=== PATIENT | male | born 1955 | race Caucasian/White ===

== ENCOUNTER 2017-02-21 14:46 | Outpatient (RCR) | payer MEDICARE, OTHER ==
[2017-04-02] MEDS ORDERED: TAMS0.4C98 PO (15:31)
[2017-04-02] MEDS ORDERED: IPRA3AMP IH (15:31)
[2017-04-02] MEDS ORDERED: VARE1TAB22 PO (15:31)
[2017-04-02] MEDS ORDERED: IPRA4AER IH (15:31)
[2017-04-02] MEDS ORDERED: FLUT1AER IH (15:31)
[2017-04-20] MEDS ORDERED: HYDR-3874 PO (14:49)
[2017-04-20] MEDS ORDERED: CIPR-225 PO (14:49)
[2017-04-20] MEDS ORDERED: PHEN-640 PO (14:49)
== END 2017-04-24 | disposition home or self-care (01) ==
LOC: ONC 14:46
PROVIDERS: ATTEND Radiology Radiation Oncology
DX: C61 Malignant neoplasm of prostate (principal)
CPT/HCPCS: 76873; 99214

== ENCOUNTER 2017-04-02 15:16 | Outpatient (CLI) | payer MEDICARE ==
[~2017-04-02] VITALS: Ht 180.3 cm; Wt 61.3 kg
[2017-04-02] MEDS ORDERED: VARE1TAB22 PO (15:31)
[2017-04-02] MEDS ORDERED: TAMS0.4C98 PO (15:31)
[2017-04-02] MEDS ORDERED: IPRA4AER IH (15:31)
[2017-04-02] MEDS ORDERED: IPRA3AMP IH (15:31)
[2017-04-02] MEDS ORDERED: FLUT1AER IH (15:31)
[2017-04-02 15:38] VITALS: BP 152/82
--- NOTE | 2017-04-02 16:20 | Diagnostic Imaging Report ---
INDICATION: Evaluation prior to brachytherapy. Prostate carcinoma.. TECHNIQUE: Two-view chest at 4:19 p.m. CORRELATION STUDY: None. FINDINGS: Lung winter are mildly hyperinflated. Mild pectus excavatum deformity. Lungs appear to be generally clear. Heart size, mediastinum, and vasculature are within normal limits. A few scattered skin mikala are present. Mild degenerative changes of the thoracic spine. Displaced left posterior sixth rib is noted, could be posttraumatic or surgical in nature. Also some deformity of the sternum is suggested. IMPRESSION: 1. Hyperinflated lung winter. Negative for acute cardiopulmonary abnormality. Dictated by: Dictated on workstation # [id number]
== END 2017-04-02 16:00 ==
LOC: PREOP 15:16
PROVIDERS: ATTEND Urology
DX: Z01.810 Encounter for preprocedural cardiovascular examination (principal); Z01.811 Encounter for preprocedural respiratory examination; Z11.2 Encounter for screening for other bacterial diseases; C61 Malignant neoplasm of prostate
CPT/HCPCS: 71020; 87081; 93005

== ENCOUNTER 2017-04-20 10:03 | Day surgery (SDC) | payer MEDICARE ==
[~2017-04-20] VITALS: Ht 180.3 cm; Wt 61.3 kg
[~2017-04-20 10:03] MED LIST: FLUT1AER IH; IPRA3AMP IH; IPRA4AER IH; TAMS0.4C98 PO; VARE1TAB22 PO
--- OUTSIDE RECORDS SUMMARY | 2017-04-20 10:08 | XMS REPORT | Encounter Summary ---
Author Author [facility] Address Unknown Phone Unavailable Care Team Providers Care Windows Security Analyst Name Role Phone PCP Unavailable Reason for Visit * Reason Comments Prostate Cancer Encounter Details Date Type Department Care Team Description 02/06/2017 Office Visit [facility] Camilla Sotelo MD Prostate cancer (HCC) Physicians - Urology [address] (Primary Dx) [address] [place] [address] 2ND FLOOR POD A [phone] [place] [address] [phone] Social History Tobacco Use Types Packs/Day Years Used Date Current Every Day Smoker Cigarettes 0.5 45 Smokeless Tobacco: Former User Alcohol Use Drinks/Week oz/Week Comments Yes 0 Standard 0.0 drinks or equivalent Sex Assigned at Date Recorded Not on file as of this encounter Last Filed Vital Signs Vital Sign Reading Time Taken Blood Pressure 140/63 02/06/2017 1:32 PM CDT Pulse 62 02/06/2017 1:32 PM CDT Temperature - - Respiratory Rate - - Oxygen Saturation - - Inhaled Oxygen - - Concentration Weight 62.3 kg (137 lb 6.4 oz) 02/06/2017 1:32 PM CDT Height 180.3 cm (5' 11") 02/06/2017 1:32 PM CDT Body Mass Index 19.16 02/06/2017 1:32 PM CDT in this encounter Progress Notes * Camilla Sotelo MD - 02/06/2017 1:34 PM CDT Formatting of this note may be different from the original. Date of Service: 02/06/2017 2:11 PM Subjective: Gilberto Cheatham is a 61 y.o. male. History of Present Illness 61 year old with recent diagnosis of prostate cancer referred to Dr. Sotelo to discuss surgical options. He had a recent PSA Screen which returned normal at 3.56, but JHONATAN was positive for right sided nodularity. He underwent a TRUS Bx which demonstrated 4 cores positive for for prostatic adenocarcinoma, with Valerie 3+3=6 in 34 cores in the right base, mid-gland, and lateral base, and 1 core of [place] 3+5=8 in 1 core, right lateral mid-gland (80% of the tissue). He had a follow-up CT A/P and NM Bone scan which were negative for evidence of metastatic disease. He was referred to Radiation Oncology and was counseled on options, and he states he was offered brachytherapy. He presents today for surgical evaluation. Mr. Cheatham has a history of prior colorectal cancer s/p right partial colectomy with primary re-anastamosis, radiation, and chemotherapy in 1997. He had subsequent small bowel obstruction requiring exploratory laparotomy and re- anastamosis. He also has a history of Stage 1 left lung cancer s/p left lower lobectomy. Mr. Cheatham denies any LUTS, bone pain, sweats, or fevers at this time. JHONATAN today demonstrates right sided nodularity of the prostate. Mr. Cheatham has mild baseline ED, but does not take PDE-5 inhibitors. He also has COPD on inhalers, but does not use home O2. Review of Systems Constitutional: Negative for fever, chills, diaphoresis, activity change, fatigue and unexpected weight change. HENT: Negative for congestion, hearing loss, mouth sores, sore throat and trouble swallowing. Eyes: Negative for pain and visual disturbance. Respiratory: Negative for cough, chest tightness, shortness of breath and wheezing. Cardiovascular: Negative. Negative for chest pain, palpitations and leg swelling. Gastrointestinal: Negative for nausea, vomiting, abdominal pain, diarrhea, constipation, blood in stool and abdominal distention. Endocrine: Negative for polydipsia and polyuria. Genitourinary: Negative for dysuria, urgency, frequency, hematuria, flank pain, difficulty urinating and penile pain. Musculoskeletal: Negative for myalgias, back pain, joint swelling, arthralgias and neck pain. Skin: Negative for rash. Neurological: Negative for weakness, light-headedness, numbness and headaches. Past Medical History Diagnosis Date Arthritis Asthma Enlarged prostate Malignant neoplasm of colon (HCC) Prostate cancer (HCC) Colon polyps Erectile dysfunction History of radiation therapy Past Surgical History Procedure Laterality Date Hx cholecystectomy Skin graft Lung surgery Family History Problem Relation Age of Onset Family history unknown: Yes Current Outpatient Prescriptions Medication Sig Dispense Refill fluticasone-vilanterol (BREO ELLIPTA) 200-25 mcg/dose inhaler Inhale 1 Puff by mouth into the lungs daily. gabapentin (NEURONTIN) 300 mg capsule Take 300 mg by mouth every 8 hours. IPRATROPIUM/ALBUTEROL SULFATE (COMBIVENT IN) Inhale by mouth into the lungs. IPRATROPIUM/ALBUTEROL SULFATE (DUONEB IN) Inhale by mouth into the lungs. MULTIVITAMINS WITH FLUORIDE (MULTI-VITAMIN PO) Take by mouth. tamsulosin (FLOMAX) 0.4 mg capsule Take 0.4 mg by mouth daily. Do not crush , chew or open capsules. Take 30 minutes following the same meal each day. No current facility-administered medications for this visit. Allergies Allergen Reactions Penicillins RASH Reglan [Metoclopramide] RASH Social History Social History Marital Status: Spouse Name: N/A Number of Children: N/A Years of Education: N/A Occupational History Not on file. Social History Main Topics Smoking status: Current Every Day Smoker -- 0.50 packs/day for 45 years Types: Cigarettes Smokeless tobacco: Former User Alcohol Use: 0.0 oz/week 0 Standard drinks or equivalent per week Drug Use: No Sexual Activity: Partners: Female Other Topics Concern Not on file Social History Narrative No narrative on file Objective: Filed Vitals: 02/06/17 1332 BP: 140/63 Pulse: 62 Height: 180.3 cm (71") Weight: 62.324 kg (137 lb 6.4 oz) Body mass index is 19.17 kg/(m^2). Physical Exam Constitutional: He is oriented to person, place, and time. He appears well- developed and well-nourished. No distress. HENT: Head: Normocephalic and atraumatic. Eyes: Conjunctivae and EOM are normal. Neck: Normal range of motion. No tracheal deviation present. Cardiovascular: Normal rate, regular rhythm, normal heart sounds and intact distal pulses. Exam reveals no gallop and no friction rub. No murmur heard. Pulmonary/Chest: Effort normal. No respiratory distress. He exhibits no tenderness. Abdominal: Soft. He exhibits no distension. There is no tenderness. There is no rebound and no guarding. Genitourinary: No suprapubic tenderness. No CVA tenderness. Circumcised phallus with orthotopic meatus without lesions. Scrotal testicles palpable bilaterally. Symmetric without masses or swelling. Vas palpable bilaterally. No inguinal hernia bilaterally. JHONATAN: normal rectal tone, no masses , no gross blood. 25 gram prostate with right nodularity. Musculoskeletal: Normal range of motion. He exhibits no edema. Neurological: He is alert and oriented to person, place, and time. Skin: Skin is warm and dry. No rash noted. Psychiatric: He has a normal mood and affect. His behavior is normal. Judgment and thought content normal. I personally reviewed the patients imaging (CT A/P and NM Bone Scan) and outside records today in clinic. Pertinent details summarized in HPI and Assessment/Plan. Assessment and Plan: Problem Prostate Cancer (Hcc) 61 year old male with a recent history of PSA of 3.56 and abnormal JHONATAN who saw Dr. Mora and had a recent TRUS Bx which demonstrated 4 cores positive for for prostatic adenocarcinoma, with Valerie 3+3=6 in 34 cores in the right base, mid- gland, and lateral base, and 1 core of Valerie 3+5=8 in 1 core, right lateral mid-gland (80% of the tissue). He also had a recent bone scan and CT Abdomen Pelvis without evidence of metastatic disease. JHONATAN today with right sided nodularity. Prostate cancer (HCC) I had an extensive consultation with the patient today reviewing the spectrum of prostate cancer treatment options, including the pros and cons and risks and benefits of each. Surgery (RRP, RALP) Radiation (XRT, BrachyTx) Cryoablation High Intensity Focused Ultrasound (HIFU) Androgen Deprivation Tx (ADT) Active surveillance () Risks and complications of surgery, especially stress incontinence and erectile dysfunction reviewed in detail. Differences between robotic prostatectomy and radical retropubic prostatectomy reviewed. Typical benefit of robotic prostatectomy include less blood loss and shorter hospital stay, but otherwise results are similar in regards to oncologic outcome, stress incontinence and erectile dysfunction compared to retropubic prostatectomy. Risks and complications of radiation, reviewed. Possible benefits of , including avoidance of side effects, complications, & potentially over treatment reviewed in detail, compared to possibility progression of disease & missing a window of curability. recommendations & protocol reviewed. After careful consideration, the patient would like to proceed with Radiation therapy. He will follow-up with Dr. Cueto in [place], [place] for this therapy. Ginger Wilson MD PGY-2 Urology ATTESTATION I personally performed the hall portions of the E/M visit, discussed case with resident and concur with resident documentation of history, physical exam, assessment, and treatment plan unless otherwise noted. Staff name: Camilla Sotelo MD Date: 02/06/2017 in this encounter Plan of Treatment Not on fileas of this encounter Visit Diagnoses Diagnosis Prostate cancer (HCC) - Primary Malignant neoplasm of prostate in this encounter
--- OUTSIDE RECORDS SUMMARY | 2017-04-20 10:08 | XMS REPORT | Clinical Summary ---
Author Author [facility] Organization [facility] Address Unknown Phone Unavailable Care Team Providers Care Cardiology Nurse Practitioner Name Role Phone PCP Unavailable Source Comments Some departments are not documenting in the electronic medical record. If you do not see the information that you expected, contact Release of Information in the Health Information Management department at [phone] for further assistance in locating additional records.[facility] Allergies Active Allergy Reactions Severity Noted Date Comments Penicillins RASH Medium 02/06/2017 Metoclopramide RASH Medium 02/06/2017 Current Medications Prescription Sig. Disp. Refills Start End Date Status Date tamsulosin (FLOMAX) 0.4 Take 0.4 mg by mouth Active mg capsule daily. Do not crush, chew or open capsules. Take 30 minutes following the same meal each day. fluticasone-vilanterol Inhale 1 Puff by mouth Active (BREO ELLIPTA) 200-25 into the lungs daily. mcg/dose inhaler IPRATROPIUM/ALBUTEROL Inhale by mouth into the Active SULFATE (COMBIVENT IN) lungs. MULTIVITAMINS WITH Take by mouth. Active FLUORIDE (MULTI-VITAMIN PO) gabapentin (NEURONTIN) Take 300 mg by mouth Active 300 mg capsule every 8 hours. IPRATROPIUM/ALBUTEROL Inhale by mouth into the Active SULFATE (DUONEB IN) lungs. Active Problems Problem Noted Date Prostate cancer (HCC) 02/06/2017 Overview: 61 year old male with a recent [...] disease. JHONATAN today with right sided nodularity. L ast Assessment & Plan: I had an extensive consultation with the [...] He will follow-up with Dr. Cueto in [place], [place] for this therapy. Encounters Date Type Specialty Care Team Description 02/06/2017 Office Visit Urology Camilla Sotelo MD Prostate cancer (HCC) (Primary Dx) from Last 3 Months Social History Tobacco Use Types Packs/Day Years Used Date Current Every Day Smoker Cigarettes 0.5 45 Smokeless Tobacco: Former User Alcohol Use Drinks/Week oz/Week Comments Yes 0 Standard 0.0 drinks or equivalent Sex Assigned at Date Recorded Not on file Last Filed Vital Signs Vital Sign Reading [...] Mass Index 19.16 02/06/2017 1:32 PM CDT Plan of Treatment Health Maintenance Due Date Last Done Comments HEPATITIS C SCREENING 1954 PHYSICAL (COMPREHENSIVE) 1961 EXAM PERTUSSIS VACCINE 1965 TETANUS VACCINE 1971 COLORECTAL CANCER 2004 SCREENING SHINGLES VACCINE 2014 INFLUENZA VACCINE 05/04/2017 Results Not on filefrom Last 3 Months
[2017-04-20] MEDS ORDERED: LEVOFLOXACIN 500 MG/D5W 100 ML (PRE-MIX) IV ONE (10:15)
[2017-04-20] MEDS ORDERED: LACTATED RINGERS 1,000 ML IV PRN (10:23)
[2017-04-20 10:49] VITALS: BP 132/80
[2017-04-20] MEDS ORDERED: MIDAZOLAM 2 MG/2 ML (VERSED) VIAL ONE (10:52)
[2017-04-20] MEDS ORDERED: fentaNYL INJECTION 100 MCG/2 ML AMP ONE (10:52)
[2017-04-20] MEDS ORDERED: DEXAMETHASONE 10 MG/ML (DECADRON) 1 ML VIAL ONE (10:52)
[2017-04-20] MEDS ORDERED: ONDANSETRON 4 MG/2 ML (SDV) Z0FRAN ONE (10:52)
[2017-04-20] MEDS ORDERED: LACTATED RINGERS 1,000 ML IV ONE (10:52)
[2017-04-20] MEDS ORDERED: LIDOCAINE PF 2% 5 ML (XYLOCAINE) VIAL ONE (10:52)
[2017-04-20] MEDS ORDERED: proPOfol 200 MG/20 ML (DIPRIVAN) VIAL IV ONE (10:52)
[2017-04-20] MEDS ORDERED: SEVOFLURANE (ULTANE) 15 ML INHAL SOLN ONE (10:52)
--- NOTE | 2017-04-20 12:11 | Progress Note-Pre Operative ---
Pre-Operative Progress Note H&P Reviewed The H&P was reviewed, patient examined and no changes noted. Date Seen by Provider: Apr 20, 2017 Time Seen by Provider: 12:10 Date H&P Reviewed: Apr 20, 2017 Time H&P Reviewed: 12:11 Pre-Operative Diagnosis: CA PROSTATE ROBYN GUILLERMO MD Apr 20, 2017 12:11 pm
--- NOTE | 2017-04-20 12:12 | Progress Note-Post Operative ---
Post-Operative Progess Note Surgeon (s)/Machine Sprayer (s) Surgeon ROBYN GUILLERMO MD Machine Sprayer: SALLY Pre-Operative Diagnosis CA PROSTATE Post-Operative Diagnosis SAME Procedure & Operative Findings Date of Procedure 04/20/17 Procedure Performed/Findings BRACHYTHERAPY, CYSTOGRAM, POSSIBLE CYSTO AND REMOVAL OF SEEDS Anesthesia Type GENERAL Estimated Blood Loss Estimated blood loss (mL): N/A Specimens/Packing Specimens Removed N/A Packing: N/A ROBYN GUILLERMO MD Apr 20, 2017 12:12 pm
--- NOTE | 2017-04-20 12:14 | Discharge Inst-Urology ---
Discharge Inst-Urology Discharge Medications New, Converted, or Re-newed RX: RX on Chart Patient Instructions/Follow Up Plan Please make appointment to been seen in office in 2 weeks. Rest till then or daughter to [place] stallings Sunday 9am, please give them syringe Increase oral fluids for 48 hours and then as needed. Diet and Activity as tolerated. If questions or concerns contact your physician Or seek help at emergency department. ROBYN GUILLERMO MD Apr 20, 2017 12:14 pm
[2017-04-20] MEDS ORDERED: ONDANSETRON 4 MG/2 ML (SDV) Z0FRAN IVP PRN (13:45)
[2017-04-20] MEDS ORDERED: morphine INJ 10 MG/ML 1ML (SYR OR VIAL) IVP PRN (13:45)
[2017-04-20 14:25] VITALS: BP 124/78
[2017-04-20] MEDS ORDERED: CIPR-225 PO ×2 (14:49)
[2017-04-20] MEDS ORDERED: HYDR-3874 PO ×2 (14:49)
[2017-04-20] MEDS ORDERED: PHEN-640 PO ×2 (14:49)
[2017-04-20 14:55] VITALS: BP 126/79
[2017-04-20 15:25] VITALS: BP 128/71
[2017-04-20] MEDS ORDERED: PHENAZOPYRIDINE 100 MG (PYRIDIUM) TABLET ONE (16:18)
[2017-04-20 16:45] VITALS: BP 128/71
[2017-04-20] MEDS ORDERED: PHENAZOPYRIDINE 100 MG (PYRIDIUM) TABLET PO ONE (17:00)
--- NOTE | 2017-04-20 18:01 | Diagnostic Imaging Report ---
INDICATION: Prostate cancer. IMPRESSION: 29 seconds of fluoroscopy was used by Dr. Marcial during brachytherapy seed implantation into the prostate. Dictated by: Dictated on workstation # [id number]
== END 2017-04-20 16:45 | disposition home or self-care (01) ==
LOC: SDC 10:03
PROVIDERS: ATTEND Urology
DX: C61 Malignant neoplasm of prostate (principal); J44.9 Chronic obstructive pulmonary disease, unspecified; M19.91 Primary osteoarthritis, unspecified site; F17.210 Nicotine dependence, cigarettes, uncomplicated; Z85.038 Personal history of other malignant neoplasm of large intestine; Z85.118 Personal history of other malignant neoplasm of bronchus and lung; Z79.899 Other long term (current) drug therapy
CPT/HCPCS: 76965; 77318; 77332; 77336; 77470; 77778

== ENCOUNTER 2017-04-26 14:33 | Emergency (ER) | payer MEDICARE ==
[~2017-04-26 14:33] MED LIST changes: +CIPR-225 PO; +HYDR-3874 PO; +PHEN-640 PO
--- OUTSIDE RECORDS SUMMARY | 2017-04-26 14:43 | XMS REPORT | Clinical Summary ---
Author Author [facility] Organization [facility] Address Unknown Phone Unavailable Care Team Providers Care Barbecue Cook Name Role Phone PCP Unavailable Source Comments Some departments are not documenting in the electronic medical record. If you do not see the information that you expected, contact Release of Information in the Health Information Management department at [phone] for further assistance in locating additional records.[facility] Allergies Active Allergy Reactions Severity Noted [...] He will follow-up with Dr. Cueto in [place], [place] for this therapy. Encounters Date Type [...]
--- OUTSIDE RECORDS SUMMARY | 2017-04-26 14:43 | XMS REPORT | Encounter Summary ---
Author Author [facility] Organization [facility] Address Unknown Phone Unavailable Care Team Providers Care Maintenance Department Manager Name Role Phone PCP Unavailable Reason for Visit * Reason Comments Prostate Cancer Encounter Details Date Type Department Care Team Description 02/06/2017 Office Visit [facility] Camilla Sotelo MD Prostate cancer (HCC) Physicians - Urology [address] (Primary Dx) [address] [place] [address] 2ND FLOOR POD A [phone] [place] [address] [phone] Social History Tobacco Use Types Packs/Day Years [...] and lateral base, and 1 core of [place] 3+5=8 in 1 core, right lateral mid-gland [...] He will follow-up with Dr. Cueto in [place], [place] for this therapy. iGnger Wilson MD PGY-2 Urology ATTESTATION I personally [...]
[2017-04-26] MEDS ORDERED: CIPR500T4 (15:42)
[2017-04-26 15:54] LABS: BASOPHILS % (AUTO) 1 % (0-10); EOSINOPHILS # (AUTO) 0.2 10^3/uL (0.0-0.3); EOSINOPHILS % (AUTO) 3 % (0-10); LYMPHOCYTES # (AUTO) 1.2 X 10^3 (1.0-4.0); LYMPHOCYTES % (AUTO) 16 % (12-44); MEAN CORPUSCULAR HEMOGLOBIN 33 PG (25-34); MEAN CORPUSCULAR HGB CONC 33 G/DL (32-36); MEAN CORPUSCULAR VOLUME 97 FL (80-99); MEAN PLATELET VOLUME 9.4 FL (7.4-10.4); MONOCYTES # (AUTO) 0.6 X 10^3 (0.0-1.0); MONOCYTES % (AUTO) 8 % (0-12); NEUTROPHILS # (AUTO) 5.3 X 10^3 (1.8-7.8); NEUTROPHILS % (AUTO) 73 % (42-75); PLATELET COUNT 189 10^3/uL (130-400); RED BLOOD COUNT 4.22 10^6/uL (4.35-5.85); RED CELL DISTRIBUTION WIDTH 11.8 % (10.0-14.5); WHITE BLOOD COUNT 7.3 10^3/uL (4.3-11.0)
[2017-04-26 15:55] LABS: BILIRUBIN,URINE NEGATIVE (NEGATIVE); KETONES,URINE NEGATIVE (NEGATIVE); LEUKOCYTE ESTERASE ,URINE 1+ (NEGATIVE); NITRITE,URINE NEGATIVE (NEGATIVE); PH,URINE 7 (5-9); PROTEIN,URINE NEGATIVE (NEGATIVE); UROBILINOGEN,URINE NORMAL (NORMAL)
--- NOTE | 2017-04-26 15:57 | ED GU-Male ---
General Chief Complaint: -Male Stated Complaint: TROUBLE URINATING Source: patient Exam Limitations: no limitations History of Present Illness Time seen by provider: 15:56 Initial Comments To ER with troubles urinating. Patient had prostate seeding done by Dr. Guillermo a few weeks ago. This was followed with Veliz catheter placement. He is currently on Cipro. He states that he is able to urinate but feels as though he is not able to empty his bladder completely and has only a dribbling when he does go. His catheter was removed on Sunday of this week with today being . Until today, he's been able to urinate without difficulty. Timing/Duration: just prior to arrival Severity/Quality: moderate Location: suprapubic Radiation: none Activities at Onset: none Prior Genitourinary Problems: none Associated Symptoms: denies symptoms Allergies and Home Medications Allergies Coded Allergies: Penicillins (Verified Allergy, Intermediate, WELTS, 04/26/17) metoclopramide (Verified Allergy, Intermediate, RASH, 04/26/17) temazepam (Verified Allergy, Intermediate, RASH, 04/26/17) Home Medications Albuterol/Ipratropium 4 Gm Aero, IH PRN, (Reported) Ciprofloxacin HCl 500 Mg Tablet, 500 MG PO BID, #14 Prescribed by: GITA BROWN on 04/20/17 1449 Ciprofloxacin HCl 500 Mg Tablet, (Reported) Fluticasone/Vilanterol 1 Each Blst.w.dev, 1 EACH IH DAILY, (Reported) Hydrocodone/Acetaminophen 1 Each Tablet, 1-2 EACH PO Q4H PRN for PAIN, #30 Prescribed by: GITA BROWN on 04/20/17 1449 Ipratropium/Albuterol Sulfate 3 Ml Ampul.neb, 3 ML IH Q4H PRN for SHORTNESS OF BREATH, (Reported) Phenazopyridine HCl 200 Mg Tablet, 1 TAB PO TID PRN for SPASMS, #30 Prescribed by: GITA BROWN on 04/20/17 1449 Tamsulosin HCl 0.4 Mg Cap, 0.4 MG PO DAILY, (Reported) Varenicline Tartrate 1 Mg Tablet, 1 MG PO DAILY, (Reported) Constitutional: see HPI, No chills, No fever EENTM: see HPI Respiratory: no symptoms reported Cardiovascular: no symptoms reported Genitourinary: no symptoms reported Musculoskeletal: no symptoms reported Skin: no symptoms reported Psychiatric/Neurological: No Symptoms Reported Endocrine: No Symptoms Reported Hematologic/Lymphatic: No Symptoms Reported Past Uxqylfj-Pspzxq-Rfeoys Hx Patient Social History Alcohol Use: Denies Use Recreational Drug Use: No Smoking Status: Current Everyday Smoker Type Used: Cigarettes Recent Foreign Travel: No Contact w/Someone Who Travel: No Recent Hopitalizations: No Physical Abuse: No Sexual Abuse: No Mistreated: No Fear: No Immunizations Up To Date Tetanus Booster (TDap): Unknown Date of Pneumonia Vaccine: Apr 02, 2014 Seasonal Allergies Seasonal Allergies: No Surgeries History of Surgeries: Yes (LOBECTOMY LLL 2008, BOWEL RESECTION-FOR BOWEL STRANGULATION, COLECTOMY) Surgeries: Gallbladder Respiratory History of Respiratory Disorde: Yes Respiratory Disorders: COPD Cardiovascular History of Cardiac Disorders: Yes (POSS PE AFTER BOWEL RESECTION) Neurological History of Neurological Disord: No Reproductive System Hx Reproductive Disorders: No Sexually Transmitted Disease: No HIV/AIDS: No Genitourinary History of Genitourinary Disor: Yes (Radiation seeds implant 04/20/17) Genitourinary Disorders: Prostate Problems Gastrointestinal History of Gastrointestinal Di: Yes Gastrointestinal Disorders: Chronic Diarrhea Musculoskeletal History of Musculoskeletal Dis: Yes (OSTEOARTHRITIS) Musculoskeletal Disorders: Degenerate Disk Disease Endocrine History of Endocrine Disorders: No HEENT Loss of Vision: Bilateral Hearing Impairment: Denies Cancer History of Cancer: Yes Cancer: Prostate, Colon Psychosocial History of Psychiatric Problem: No Suicide Risk Score: 0 Integumentary History of Skin or Integumenta: No Blood Transfusions History of Blood Disorders: No Adverse Reaction to a Blood Tr: No (N/A) Physical Exam Vital Signs Capillary Refill : General Appearance: WD/WN, no apparent distress HEENT: PERRL/EOMI, normal ENT inspection Neck: non-tender, full range of motion, supple Cardiovascular: regular rate, rhythm, no murmur Respiratory: normal breath sounds, no respiratory distress, no accessory muscle use Gastrointestinal: normal bowel sounds, non tender, soft Extremities: normal range of motion, non-tender Neurologic/Psychiatric: alert, normal mood/affect, oriented x 3 Skin: normal color, warm/dry Progress/Results/Core Measures Results/Orders Lab Results Laboratory Tests Test 04/26/17 15:30 04/26/17 15:50 Range/Units Urine Color YELLOW Urine Clarity CLEAR Urine pH 7 5-9 Urine Specific Melvin 1.010 L 1.016-1.022 Urine Protein NEGATIVE NEGATIVE Urine Glucose (UA) NEGATIVE NEGATIVE Urine Ketones NEGATIVE NEGATIVE Urine Nitrite NEGATIVE NEGATIVE Urine Bilirubin NEGATIVE NEGATIVE Urine Urobilinogen NORMAL NORMAL MG/DL Urine Leukocyte Esterase 1+ H NEGATIVE Urine RBC (Auto) 5+ H NEGATIVE Urine RBC >100 H /HPF Urine WBC 2-5 /HPF Urine Crystals NONE /LPF Urine Bacteria NONE /HPF Urine Casts NONE /LPF Urine Mucus NEGATIVE /LPF Urine Culture Indicated NO White Blood Count 7.3 4.3-11.0 10^3/uL Red Blood Count 4.22 L 4.35-5.85 10^6/uL Hemoglobin 13.7 13.3-17.7 G/DL Hematocrit 41 40-54 % Mean Corpuscular Volume 97 80-99 FL Mean Corpuscular Hemoglobin 33 25-34 PG Mean Corpuscular Hemoglobin Concent 33 32-36 G/DL Red Cell Distribution Width 11.8 10.0-14.5 % Platelet Count 189 130-400 10^3/uL Mean Platelet Volume 9.4 7.4-10.4 FL Neutrophils (%) (Auto) 73 42-75 % Lymphocytes (%) (Auto) 16 12-44 % Monocytes (%) (Auto) 8 0-12 % Eosinophils (%) (Auto) 3 0-10 % Basophils (%) (Auto) 1 0-10 % Neutrophils # (Auto) 5.3 1.8-7.8 X 10^3 Lymphocytes # (Auto) 1.2 1.0-4.0 X 10^3 Monocytes # (Auto) 0.6 0.0-1.0 X 10^3 Eosinophils # (Auto) 0.2 0.0-0.3 10^3/uL Basophils # (Auto) 0.0 0.0-0.1 10^3/uL Sodium Level 142 135-145 MMOL/L Potassium Level 4.1 3.6-5.0 MMOL/L Chloride Level 108 H 98-107 MMOL/L Carbon Dioxide Level 28 21-32 MMOL/L Anion Gap 6 5-14 MMOL/L Blood Urea Nitrogen 11 7-18 MG/DL Creatinine 0.83 0.60-1.30 MG/DL Estimat Glomerular Filtration Rate > 60 BUN/Creatinine Ratio 13 Glucose Level 96 70-105 MG/DL Calcium Level 9.3 8.5-10.1 MG/DL My Orders Orders - CRESENCIO KHAN APRN Lidocaine 2% (Urojet) (Xylocaine Urojet) (04/26/17 16:15) Departure Impression Impression: Primary Impression: Prostate cancer Disposition: HOME, SELF-CARE Condition: Stable Departure-Patient Inst. Decision time for Depature: 16:47 Referrals: NO,LOCAL PHYSICIAN (PCP) Primary Care Physician ROBYN GUILLERMO MD Patient Instructions: Prostatitis (DC) Add. Discharge Instructions: 1. Return to ER for any concerns 2. Follow-up with Dr. Guillermo on Sunday to get the Veliz catheter removed All discharge instructions reviewed with patient and/or family. Voiced understanding. CRESENCIO KHAN APRN Apr 26, 2017 15:56
[2017-04-26 16:11] LABS: ANION GAP 6 MMOL/L (5-14); BLOOD UREA NITROGEN 11 MG/DL (7-18); BUN/CREATININE RATIO 13; CALCIUM 9.3 MG/DL (8.5-10.1); CARBON DIOXIDE 28 MMOL/L (21-32); CHLORIDE 108 MMOL/L (98-107); CREATININE SERUM 0.83 MG/DL (0.60-1.30); GFR ESTIMATED > 60; GLUCOSE 96 MG/DL (70-105); POTASSIUM 4.1 MMOL/L (3.6-5.0); SODIUM 142 MMOL/L (135-145)
[2017-04-26] MEDS ORDERED: LIDOCAINE UROJET 2% GEL 10 ML PKG TOP ONE (16:15)
[2017-04-26 17:15] VITALS: BP 153/71
== END 2017-04-26 17:17 | disposition home or self-care (01) ==
LOC: EDUNIT# 14:33 → ER 14:35
DX: R33.9 Retention of urine, unspecified (principal); C61 Malignant neoplasm of prostate; J44.9 Chronic obstructive pulmonary disease, unspecified; F17.210 Nicotine dependence, cigarettes, uncomplicated; Z79.899 Other long term (current) drug therapy; Z98.890 Other specified postprocedural states; Z90.49 Acquired absence of other specified parts of digestive tract; Z85.038 Personal history of other malignant neoplasm of large intestine
CPT/HCPCS: 36415; 51702; 80048; 81000; 85025

== ENCOUNTER 2017-05-17 10:18 | Outpatient (RCR) | payer MEDICARE ==
[~2017-05-17 10:18] MED LIST changes: +CIPR500T4
== END 2017-06-02 | disposition home or self-care (01) ==
LOC: ONC 10:18
PROVIDERS: ATTEND Radiology Radiation Oncology
DX: C61 Malignant neoplasm of prostate (principal)
CPT/HCPCS: 77295; 77336

== ENCOUNTER 2017-08-06 11:04 | Outpatient (RCR) | payer MEDICARE | END 2017-09-05 | disposition home or self-care (01) | LOC: ONC 11:04 | PROVIDERS: ATTEND Radiology Radiation Oncology | DX: C61 Malignant neoplasm of prostate (principal); Z51.0 Encounter for antineoplastic radiation therapy | CPT/HCPCS: 77300; 77301; 77336; 77338; 77385; 77470 ==

== ENCOUNTER 2017-10-16 15:49 | Outpatient (RCR) | payer MEDICARE ==
[~2017-10-16 15:49] MED LIST changes: +HYDR-3870 PO; -HYDR-3874 PO
== END 2018-01-14 | disposition home or self-care (01) ==
LOC: ONC 15:49
PROVIDERS: ATTEND Radiology Radiation Oncology
DX: C61 Malignant neoplasm of prostate (principal)
CPT/HCPCS: 99213